=== PATIENT | female | born 1975 | race Caucasian/White ===

== ENCOUNTER 2018-09-26 11:27 | Emergency (ER) | payer OTHER ==
[~2018-09-26] VITALS: Ht 167.6 cm; Wt 86.4 kg
[2018-09-26] MEDS ORDERED: HYDR25TA PO (11:33)
[2018-09-26] MEDS ORDERED: KETOROLAC TROMETHAMINE 10 MG TABLET PO ONE (13:45)
[2018-09-26 14:07] VITALS: BP 140/82
== END 2018-09-26 14:08 | disposition left against medical advice (07) ==
LOC: EMS 11:29
DX: I10 Essential (primary) hypertension (principal); E11.9 Type 2 diabetes mellitus without complications; Z76.0 Encounter for issue of repeat prescription; Z79.899 Other long term (current) drug therapy
CPT/HCPCS: 93005

== ENCOUNTER 2021-10-20 20:30 | Emergency (ER) | payer OTHER ==
[~2021-10-20] VITALS: Ht 170.2 cm; Wt 90.9 kg
[~2021-10-20 20:30] MED LIST: HYDR25TA2 PO
[2021-10-20 20:32] VITALS: BP 159/98
[2021-10-20] MEDS ORDERED: HYDR25TA2 PO ×2 (21:05→21:13)
== END 2021-10-20 21:20 | disposition home or self-care (01) ==
LOC: EMS 20:32
DX: I10 Essential (primary) hypertension (principal); E11.9 Type 2 diabetes mellitus without complications; Z76.0 Encounter for issue of repeat prescription
CPT/HCPCS: 82962; 99282

== ENCOUNTER 2022-01-05 20:52 | Emergency (ER) | payer OTHER ==
[~2022-01-05] VITALS: Ht 160 cm; Wt 90.9 kg
[2022-01-05 21:05] VITALS: BP 138/89
[2022-01-05] MEDS ORDERED: METF-1211 PO (21:12)
== END 2022-01-05 23:20 | disposition left against medical advice (07) ==
LOC: EMS 21:00
DX: Z53.21 Procedure and treatment not carried out due to patient leaving prior to being seen by health care provider (principal)
CPT/HCPCS: 82962

== ENCOUNTER 2022-01-19 03:20 | Emergency (ER) | payer OTHER ==
[~2022-01-19] VITALS: Ht 160 cm; Wt 90.9 kg
[~2022-01-19 03:20] MED LIST changes: +HYDR-4870 PO; -HYDR25TA2 PO; +METF-1211 PO
[2022-01-19 03:22] VITALS: BP 149/95
[2022-01-19] MEDS ORDERED: METF-1211 PO (04:15)
[2022-01-19] MEDS ORDERED: HYDR-4870 PO (04:15)
== END 2022-01-19 04:18 | disposition home or self-care (01) ==
LOC: EMS 03:23
DX: E11.65 Type 2 diabetes mellitus with hyperglycemia (principal); F10.20 Alcohol dependence, uncomplicated; I10 Essential (primary) hypertension; Z76.0 Encounter for issue of repeat prescription
CPT/HCPCS: 82962; 99281; 99282